=== PATIENT | female | born 1955 | race Hispanic/Latino ===

== ENCOUNTER 2017-09-07 16:36 | Emergency (ER) | payer MEDICAID ==
[2017-09-07 16:36] VITALS: BMI 26.2
--- NOTE | 2017-09-07 17:16 | ED PDOC ---
HPI: Hypertension/Hypotension Time Seen by Provider: 09/07/17 16:51 Chief Complaint (Nursing): High Blood Pressure Chief Complaint (Provider): Elevated BP History Per: Patient History/Exam Limitations: no limitations Additional Complaint(s): Pt sent from [facility] [place] for elevated BP. Pt also c/o not feeling right, minimal cough, clogged ears, minimal nausea. Denies fever, CP, SOB, vomiting, diarrhea, urinary symptoms. Pt states her Mother 2 weeks ago so feeling anxious and her heart rate is usually elevated. Past Medical History Reviewed: Nursing Documentation, Vital Signs Vital Signs: Last Vital Signs Temp 98.6 F 09/07/17 16:48 Pulse 123 H 09/07/17 16:48 Resp 20 09/07/17 16:48 BP 159/81 H 09/07/17 16:48 Pulse Ox 98 09/07/17 16:48 - Medical History PMH: HTN - Surgical History Surgical History: No Surg Hx - Family History Family History: States: Unknown Family Hx - Social History Current smoker - smoking cessation education provided: No Alcohol: None - Home Medications Home Medications: Ambulatory Orders Medication Instructions Recorded Amoxicillin/Clavulanate [Augmentin 1 tab PO BID #19 tab 09/07/17 875 MG-125 MG] - Allergies Allergies/Adverse Reactions: Allergies Allergy/AdvReac Type Severity Reaction Status Date / Time sulfamethoxazole Allergy Unknown ANAPHYLAXIS Verified 12/29/16 16:11 [From Sulfatrim] trimethoprim [From Sulfatrim] Allergy Unknown ANAPHYLAXIS Verified 12/29/16 16: 11 Review of Systems Constitutional: Negative for: Fever, Chills ENT: Negative for: Ear Pain, Ear Discharge, Throat Pain, Throat Swelling Cardiovascular: Negative for: Chest Pain, Palpitations Respiratory: Negative for: Cough, Shortness of Breath Gastrointestinal: Positive for: Nausea. Negative for: Vomiting, Abdominal Pain , Diarrhea Genitourinary Female: Negative for: Dysuria, Hematuria Skin: Negative for: Rash, Lesions Neurological: Positive for: Headache. Negative for: Weakness, Numbness, Incoordination, Change in Speech, Confusion, Seizures, Altered Mental Status, Dizziness Physical Exam - Reviewed Nursing Documentation Reviewed: Yes Vital Signs Reviewed: Yes - Physical Exam Appears: Positive for: Well, No Acute Distress (Speaking full sentences) Head Exam: Positive for: ATRAUMATIC, NORMAL INSPECTION Skin: Positive for: Normal Color, Warm, Dry Eye Exam: Positive for: Normal appearance, EOMI, PERRL ENT: Negative for: Sinus Pain/Drainage Cardiovascular/Chest: Positive for: Tachycardia Respiratory: Positive for: Normal Breath Sounds. Negative for: Rhonchi, Stridor , Wheezing Gastrointestinal/Abdominal: Positive for: Normal Exam, Bowel Sounds, Soft. 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 Negative for: Motor/Sensory Deficits - Laboratory Results Result Diagrams: 09/07/17 17:47 09/07/17 17:47 - ECG O2 Sat by Pulse Oximetry: 98 - Radiology X-Ray: Interpreted by [place] X-Ray Interpretation: No Acute Disease Medical Decision Making Medical Decision Makin yo female with elevated BP. - labs - EKG - CXR - CT head Accession No. : [id number] Patient Name / ID : RENITA MCCORD / [id number] Exam Date : 09/07/2017 18:21:05 ( Approved ) Study Comment : Sex / Age : F / 62Y Creator : Kalyani Foster MD Dictator : Kalyani Foster MD Catcher Helper : Embalmer/Funeral Director : Kalyani Foster MD Approver2 : Report Date : 09/07/2017 18:50:37 My Comment : PROCEDURE: CT HEAD WITHOUT CONTRAST. HISTORY: [facility] COMPARISON: None available. TECHNIQUE: Axial computed tomography images were obtained through the head/brain without intravenous contrast. Radiation dose: Total exam DLP = 829.56 mGy-cm. This CT exam was performed using one or more of the following dose reduction techniques: Automated exposure control, adjustment of the mA and/or kV according to patient size, and/or use of iterative reconstruction technique. FINDINGS: HEMORRHAGE: No intracranial hemorrhage. BRAIN: No mass effect or edema. No atrophy or chronic microvascular ischemic changes. VENTRICLES: Unremarkable. No hydrocephalus. CALVARIUM: Unremarkable. PARANASAL SINUSES: Mucosal thickening of the maxillary sinuses with possible air-fluid level in the left side. GoUnremarkable as visualized. No significant inflammatory changes. MASTOID AIR CELLS: Unremarkable as visualized. No inflammatory changes. OTHER FINDINGS: None. IMPRESSION: No evidence of acute intracranial hemorrhage intracranial collection mass effect or midline shift. Moderate mucosal thickening of the maxillary sinuses with possible air-fluid level in the left side. Correlate clinically for sinusitis. 1857 Extremity US FINDINGS: COMMON FEMORAL VEIN: Unremarkable. SUPERFICIAL FEMORAL VEIN: Unremarkable. POPLITEAL VEIN: Unremarkable. POSTERIOR TIBIAL VEIN: Unremarkable. OTHER FINDINGS: None. IMPRESSION: No evidence of deep venous thrombosis in the right lower extremity. Disposition - Clinical Impression Clinical Impression: Acute sinusitis - Disposition Disposition Time: 19:17 Condition: STABLE Additional Instructions: FOLLOW-UP WITH [facility] WITHIN 2 DAYS FOR REEVALUATION. Prescriptions: Amoxicillin/Clavulanate [Augmentin 875 MG-125 MG] 1 tab PO BID #19 tab Instructions: Sinusitis in Adults Forms: [employer] (Vietnamese)
[2017-09-07 17:55] LABS: BASO # 0.1 K/uL (0.0-0.2); BASO % 0.8 % (0.0-2.0); EOS # 0.1 K/uL (0.0-0.7); EOS % 1.3 % (0.0-4.0); HEMOGLOBIN 13.2 g/dL (12.0-16.0); LYMPH # 1.5 K/uL (1.0-4.3); LYMPH % 22.1 % (20.0-40.0); MEAN CELL VOLUME 77.1 fl (81.0-99.0); MEAN CORPUSCULAR HEMOGLOBIN 26.1 pg (27.0-31.0); MEAN CORPUSCULAR HGB CONC 33.8 g/dL (33.0-37.0); MEAN PLATELET VOLUME 7.9 fl (7.2-11.7); MONO # 0.3 K/uL (0.0-0.8); MONO % 4.7 % (0.0-10.0); NEUT # 4.9 K/uL (1.8-7.0); NEUT % 71.1 % (50.0-75.0); RBC 5.07 Mil/uL (3.80-5.20); RED CELL DISTRIBUTION WIDTH 15.3 % (11.5-14.5); URINE BILIRUBIN NEGATIVE (NEGATIVE); URINE BLOOD NEGATIVE (NEGATIVE); URINE CLARITY CLOUDY (Clear); URINE COLOR AMBER (YELLOW); URINE GLUCOSE (UA) NEG (Normal); URINE LEUKOCYTE ESTERASE TRACE Leu/uL (Negative); URINE PROTEIN NEGATIVE (NEGATIVE); URINE UROBILINOGEN 0.2-1.0 mg/dL (0.2-1.0); WHITE BLOOD COUNT 6.9 K/uL (4.8-10.8)
[2017-09-07 18:02] LABS: ALB/GLOB RATIO 1.1 (1.0-2.1); ALBUMIN 4.4 g/dL (3.5-5.0); ALT/SGPT 35 U/L (9-52); AST/SGOT 34 U/L (14-36); BLOOD UREA NITROGEN 17 mg/dl (7-17); CALCIUM 9.7 mg/dL (8.4-10.2); GFR AFRICAN-AMERICAN > 60; GFR NON-AFRICAN AMERICAN > 60
[2017-09-07 18:04] LABS: PARTIAL THROMBOPLASTIN TIME 31.6 Seconds (25.6-37.1); PROTHROMBIN TIME 11.3 Seconds (9.8-13.1)
--- NOTE | 2017-09-07 18:52 | CT ---
PROCEDURE: CT HEAD WITHOUT CONTRAST. HISTORY: [facility]Z COMPARISON: None available. TECHNIQUE: Axial computed tomography images were obtained through the head/brain without intravenous contrast. Radiation dose: Total exam DLP = 829.56 mGy-cm. This CT exam was performed using one or more of the following dose reduction techniques: Automated exposure control, adjustment of the mA and/or kV according to patient size, and/or use of iterative reconstruction technique. FINDINGS: HEMORRHAGE: No intracranial hemorrhage. BRAIN: No mass effect or edema. No atrophy or chronic microvascular ischemic changes. VENTRICLES: Unremarkable. No hydrocephalus. CALVARIUM: Unremarkable. PARANASAL SINUSES: Mucosal thickening of the maxillary sinuses with possible air-fluid level in the left side. GoUnremarkable as visualized. No significant inflammatory changes. MASTOID AIR CELLS: Unremarkable as visualized. No inflammatory changes. OTHER FINDINGS: None. IMPRESSION: No evidence of acute intracranial hemorrhage intracranial collection mass effect or midline shift. Moderate mucosal thickening of the maxillary sinuses with possible air-fluid level in the left side. Correlate clinically for sinusitis.
[2017-09-07 18:57] VITALS: PULSE 98
--- NOTE | 2017-09-07 18:59 | US ---
PROCEDURE: Right lower extremity venous duplex Doppler. HISTORY: Leg swelling COMPARISON: None available. TECHNIQUE: Common femoral, superficial femoral, popliteal and posterior tibial veins were evaluated. Flow was assessed with color Doppler, compressibility, assessment of phasic flow and augmentation response. FINDINGS: COMMON FEMORAL VEIN: Unremarkable. SUPERFICIAL FEMORAL VEIN: Unremarkable. POPLITEAL VEIN: Unremarkable. POSTERIOR TIBIAL VEIN: Unremarkable. OTHER FINDINGS: None. IMPRESSION: No evidence of deep venous thrombosis in the right lower extremity.
[2017-09-07] MEDS ORDERED: Amoxicillin-Clav 875-125 mg Tab PO STA (19:13)
[2017-09-07] MEDS ORDERED: Amoxicillin-Clav 875-125 mg Tab PO ONE (19:28)
[2017-09-07 21:35] VITALS: BP 149/92; RESP 17; TEMP 98.7
[2017-09-07 21:51] VITALS: O2SAT 98
--- NOTE | 2017-09-08 09:56 | CARD ---
APPROVED REPORT EKG Measurement Heart [id number] <Conclusion> Sinus tachycardia Possible Inferior infarct, age undetermined Abnormal ECG
--- NOTE | 2017-09-08 10:54 | RAD ---
HISTORY: Cough COMPARISON: No prior. TECHNIQUE: Chest PA and lateral FINDINGS: LUNGS: No active pulmonary disease. PLEURA: No significant pleural effusion identified. No pneumothorax apparent. CARDIOVASCULAR: Normal. OSSEOUS STRUCTURES: Kyphotic thoracic spinal deformity likely on an osteoporotic multilevel mid thoracic spinal fracture basis though no severe fractures appreciable throughout. VISUALIZED UPPER ABDOMEN: Normal. OTHER FINDINGS: None. IMPRESSION: No acute cardiopulmonary disease appreciated.
== END 2017-09-07 21:30 | disposition home or self-care (01) ==
LOC: H.ER 16:36
DX: J01.90 Acute sinusitis, unspecified (principal); I10 Essential (primary) hypertension